=== PATIENT | female | born 1965 | race Caucasian/White ===

== ENCOUNTER 2021-09-27 21:11 | Emergency (ER) | payer OTHER ==
--- OUTSIDE RECORDS SUMMARY | 2021-09-27 21:15 | XMS REPORT | Continuity of Care Document ---
:1965 Author Organization [facility] t Address [address] [place] [address] Care Team Providers Name Role Phone Adair Andersoni Attending Clinician Unavailable Problems This patient has no known problems. Allergies, Adverse Reactions, Alerts This patient has no known allergies or adverse reactions. Medications This patient has no known medications. Procedures This patient has no known procedures. Encounters Start End Encounter Admission Attending Care Care Encounter Source Date/Time Date/Time Type Type Clinicians Facility Department ID 2021-04-21 Outpatient Anderson, STLMLC STLMLC [id number] Common 15:36:02 [facility] 2021-04-20 Outpatient Anderson, STLMLC STLMLC [id number] Common 09:57:04 [facility] 2021-03-31 Outpatient STLMLC STLMLC [id number] Common 14:39:14 [facility] 2021-09-24 2021-09-24 ambulatory STLMLC STLMLC [id number] Common 00:00:00 00:00:00 [facility] 2021-09-23 2021-09-23 ambulatory STLMLC STLMLC [id number] Common 00:00:00 00:00:00 [facility] 2021-07-13 2021-07-13 ambulatory STLMLC STLMLC [id number] Common 00:00:00 00:00:00 [facility] 2021-07-07 2021-07-07 ambulatory STLMLC STLMLC [id number] Common 00:00:00 00:00:00 [facility] 2021-07-06 2021-07-06 ambulatory STLMLC STLMLC [id number] Common 00:00:00 00:00:00 [facility] 2021-07-06 2021-07-06 ambulatory STLMLC STLMLC [id number] Common 00:00:00 00:00:00 [facility] 2021-05-13 2021-05-13 ambulatory STLMLC STLMLC [id number] Common 00:00:00 00:00:00 [facility] 2021-04-30 2021-04-30 ambulatory STLMLC STLMLC [id number] Common 00:00:00 00:00:00 [facility] 2021-04-29 2021-04-29 ambulatory STLMLC STLMLC [id number] Common 00:00:00 00:00:00 [facility] 2021-03-30 2021-03-30 ambulatory STLMLC STLMLC [id number] Common 00:00:00 00:00:00 [facility] 2021-03-29 2021-03-29 ambulatory STLMLC STLMLC [id number] Common 00:00:00 00:00:00 [facility] Results This patient has no known results.
--- NOTE | 2021-09-27 22:57 | ER ---
Nurse's Notes [facility] Name: Linwood Andrews Age: 55 yrs Sex: Female : 1965 Arrival Date: 09/27/2021 Time: 21:15 Bed Waiting Private MD: Diagnosis: SARS-associated coronavirus as the cause of diseases classified elsewhere Presentation: 09/27 21:30 Chief complaint: Patient states: NAUSEA, WEAKNESS, CHILLS SINCE YESTERDAY. Coronavirus [facility] screen: Vaccine status: Patient reports being unvaccinated. chills, congestion, fatigue, nausea. Ebola Screen: Patient negative for fever greater than or equal to 101.5 degrees Fahrenheit, and additional compatible Ebola Virus Disease symptoms. Initial Sepsis Screen: Does the patient meet any 2 criteria? No. Patient's initial sepsis screen is negative. Does the patient have a suspected source of infection? No. Patient's initial sepsis screen is negative. Risk Assessment: Do you want to hurt yourself or someone else? Patient reports no desire to harm self or others. Onset of symptoms was September 27, 2021. 21:30 Method Of Arrival: Ambulatory [facility] 21:30 Acuity: CHRIS 4 [facility] Triage Assessment: 21:32 General: Appears in no apparent distress. ill, Behavior is calm, cooperative, [facility] appropriate for age. Pain: Denies pain. Respiratory: Breath sounds are clear bilaterally. 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 - Social history:: Smoking status: Patient denies any tobacco usage or history of. Screenin:00 Abuse screen: Denies threats or abuse. Nutritional screening: No deficits noted. [facility] Tuberculosis screening: No symptoms or risk factors identified. Fall Risk None identified. Assessment: 23:00 Cardiovascular: Capillary refill < 3 seconds. Respiratory: Airway is patent. [facility] Vital Signs: 21:36 BP 113 / 64; Pulse 113; Resp 18; Temp 98.8(TE); Pulse Ox 99% on R/A; Weight 106.59 kg; [facility] Height 5 ft. 7 in. (170.18 cm); Pain 0/10; 21:36 Body Mass Index 36.81 (106.59 kg, 170.18 cm) [facility] ED Course: 21:15 Patient arrived in ED. [id number] 21:25 Juliette Garnica FNP-C is [facility]. kb 21:25 Jere Peck MD is Attending Physician. kb 21:32 Triage completed. [facility] 21:33 Arm band placed on right wrist. [facility] 21:38 COVID-19 SARS RT PCR (Document "Date of Onset" if Symptomatic) Sent. 1 21:38 Flu Sent. 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 23:00 No apparent distress. [facility] 23:00 Patient has correct armband on for positive identification. [facility] 23:00 No provider procedures requiring assistance completed. Patient did not have IV access [facility] during this emergency room visit. Administered Medications: No medications were administered Medication: 23:00 VIS not applicable for this client. [facility] Outcome: 22:56 Discharge ordered by . 23:00 Discharged to home ambulatory. [facility] 23:00 Condition: good 23:00 Discharge instructions given to patient, Instructed on discharge instructions, follow up and referral plans. medication usage, Demonstrated understanding of instructions, follow-up care, medications. 23:07 Patient left the ED. [facility] Signatures: Juliette Garnica FNP-C FNP-Sosa Rea, RN RN 1 Amira Melo [email or web address] Esther Nguyen RN RN [facility]
--- NOTE | 2021-09-27 22:57 | EDPHYS ---
Physician Documentation [facility] Name: Linwood Andrews Age: 55 yrs Sex: Female : 1965 Arrival Date: 09/27/2021 Time: 21:15 Bed Waiting Private MD: ED Physician Jere Peck HPI: 09/27 22:39 This 55 yrs old Female presents to ER via Ambulatory with complaints of Congestion, kb Headache. 22:39 The patient or guardian reports flu symptoms, low-grade fever, myalgias. Onset: The kb symptoms/episode began/occurred 2 day(s) ago. Severity of symptoms: At their worst the symptoms were mild, moderate, in the emergency department the symptoms are unchanged. Modifying factors: The symptoms are alleviated by nothing, the symptoms are aggravated by nothing. Associated signs and symptoms: The patient has no apparent associated signs or symptoms. The patient has not experienced similar symptoms in the past. The patient has not recently seen a physician. 22:55 Pt reports her has been sick for 4 days, then she developed congestion, kb headache, malaise, bodyaches and headache and is concerned it is covid. 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 - Social history:: Smoking status: Patient denies any tobacco usage or history of. ROS: 22:38 Respiratory: Negative for shortness of breath, cough, wheezing, and pleuritic chest kb pain. 22:38 Constitutional: Positive for body aches, chills, fatigue, malaise. 22:38 ENT: Positive for rhinorrhea, sinus congestion. 22:38 Neuro: Positive for headache. 22:38 All other systems are negative. Exam: 22:38 Constitutional: This is a well developed, well nourished patient who is awake, alert, kb and in no acute distress. Head/Face: Normocephalic, atraumatic. ENT: Moist Mucous membranes Cardiovascular: Regular rate and rhythm with a normal S1 and S2. No gallops, murmurs, or rubs. No pulse deficits. Respiratory: Respirations even and unlabored. No increased work of breathing. Talking in full sentences Abdomen/GI: Soft, non-tender. No distention Skin: Warm, dry with normal turgor. Normal color. MS/ Extremity: Pulses equal, no cyanosis. Neurovascular intact. Full, normal range of motion. Neuro: Awake and alert, GCS 15, oriented to person, place, time, and situation. Moves all extremities. Normal gait. Psych: Awake, alert, with orientation to person, place and time. Behavior, mood, and affect are within normal limits. Vital Signs: 21:36 BP 113 / 64; Pulse 113; Resp 18; Temp 98.8(TE); Pulse Ox 99% on R/A; Weight 106.59 kg; bh1 Height 5 ft. 7 in. (170.18 cm); Pain 0/10; 21:36 Body Mass Index 36.81 (106.59 kg, 170.18 cm) bh1 MDM: 21:33 Patient medically screened. kb 22:39 Data reviewed: vital signs, nurses notes. Data interpreted: Pulse oximetry: on room air kb is 99 %. Interpretation: normal. Counseling: I had a detailed discussion with the patient and/or guardian regarding: the historical points, exam findings, and any diagnostic results supporting the discharge/admit diagnosis, lab results, the need for outpatient follow up, a family practitioner, to return to the emergency department if symptoms worsen or persist or if there are any questions or concerns that arise at home. 09/27 21:33 Order name: Flu; Complete Time: 22:17 kb 09/27 21:33 Order name: COVID-19 SARS RT PCR (Document "Date of Onset" if Symptomatic); Complete kb Time: 22:38 Administered Medications: No medications were administered Disposition: 09/28 02:48 Co-signature as Attending Physician, Jere Peck MD I agree with the assessment and kdr plan of care. Disposition Summary: 09/27/21 22:56 Discharge Ordered Location: Home Condition: Stable kb Diagnosis - SARS-associated coronavirus as the cause of diseases classified elsewhere kb Followup: kb - With: Emergency Department - When: As needed - Reason: Worsening of condition Followup: kb - With: Private Physician - When: 2 - 3 days - Reason: Recheck today's complaints, Continuance of care, Re-evaluation by your physician Discharge Instructions: - Discharge Summary Sheet kb - COVID-19 kb Forms: - Medication Reconciliation Form kb - Thank You Letter kb - Antibiotic Education kb - Prescription Opioid Use kb Prescriptions: - Paxlovid (EUA) 150 mg x 2- 100 mg Oral tablet - take 3 tablet by ORAL route 2 times per day per package directions; 30 tablet; kb Refills: 0, Product Selection Permitted Signatures: Dispatcher [employer] EDMS Juliette Garnica, CEMENT BREAKERDanielC Jere Camp MD MD kdr Hicks, Barbara RN RN [facility]
[2021-09-27 23:30] VITALS: BP 113/64; TEMP 98.8; O2SAT 99
== END 2021-09-27 23:07 | disposition home or self-care (01) ==
LOC: ER 21:11
DX: U07.1 COVID-19 (principal)
CPT/HCPCS: 87804 ×2; 99283; U0003

== ENCOUNTER 2024-06-27 15:16 | Emergency (ER) | payer OTHER ==
--- OUTSIDE RECORDS SUMMARY | 2024-06-27 15:19 | XMS REPORT | Continuity of Care Document ---
Author Name Unknown Address [address] [facility]. [address] [place] [address] [facility] [place] Address [address] [facility] [address] [place] [address] Care Team Providers Care Riding Coach Name Role Phone MARYANN ANDERSON Primary Care Physician UnavailMaryann Peace Attending Clinician Unavailable CHARLES LAST Attending Clinician Unavailable Charles Last MD Attending Clinician [facility] Attending Clinician Tamar Costa MD Attending Clinician TAMAR JOSE Attending Clinician TAMAR Costa Attending Clinician Anderson leon Doctor Unassigned, [place] Attending Clinician U Jag Adams Admitting Clinician Unavailable CHARLES LAST Admitting Clinician Unavailable Payers Payer Name Policy Type Policy Number Effective Date Expirati on Date Source JENNIFER [id number] 2022 00:00:00 Problems Condition Name Condition Details Condition Category Status Onset Date Resolution Date Last Treatment Date Treating Clinician Comments Source [id number] Non-season al allergic rhinitis due to pollen Problem [facility] [id number] Hypothyroi dism (acquired) Problem [facility] Decreased hearing Decreased hearing Problem [facility] [id number] Sleep apnea in adult Problem [facility] [id number] Morbid (severe) obesity due to excess calories Problem [facility] [id number] DARIA (generaliz ed anxiety disorder) Problem [facility] [id number] Body mass index [BMI] 45.0-49.9, adult Problem [facility] [id number] 01 Non-allerg ic rhinitis Problem [facility] [id number] Moderate persistent asthma without complicati on Problem [facility] [id number] Gastroesop hageal reflux disease without esophagiti s Problem [facility] [id number] Pure hyperchole sterolemia Problem [facility] Allergies, Adverse Reactions, Alerts Allergy Name Allergy Type Status Severity Reaction(s) Onset Date Inactive Date Treating Clinician Comments Source GUAIFENE SIN DRUG INGREDI Active N/V 08-10 00:00: 00 [facility] Guaifene sin Propensi ty to adverse reaction s Active Nausea and/or Vomiting 08-10 00:00: 00 [facility] levothyr oxine levothyr oxine Active rash [facility] NO KNOWN ALLERGIE S Drug Class Active [facility] Social History Social Habit Start Date Stop Date Quantity Comments Source History of tobacco use Cigarette Smoker [facility] Tobacco use and exposure 2022-08-10 00:00:00 2022-08-10 00:00:00 Smokeless tobacco non-user [facility] History of Social function 2022-08-10 00:00:00 2022-08-10 00:00:00 [facility] Sex Assigned At 1965 00:00:00 1965 00:00:00 [facility] Smoking Status Start Date Stop Date Source Tobacco smoking consumption unknown [facility] Ex-smoker 2022-08-10 00:00:00 2022-08-10 00:00:00 [facility] Medications Ordered Medication Name Filled Medication Name Start Date Stop Date Current Medication? Ordering Clinician Indication Dosage Frequency Signature (SIG) Comments Components Source Vitamin D3 1.25 MG (39102 UT) Vitamin D3 1.25 MG (76087 UT) 4 00:00: 00 No 1{capsu le} Vitamin D3 1.25 MG (66341 UT) hydrOXYzine HCl 10 MG hydrOXYzine HCl 10 MG 05-22 00:00: 00 No 1{table t} BID hydrOXYzin e HCl 10 MG Cetirizine HCl 10 MG Cetirizine HCl 10 MG 2023-03 00:00: 00 No 1{table t} QD Cetirizine HCl 10 MG esomeprazol e magnesium (NEXIUM ORAL) 08-10 10:37: 11 Yes Take by mouth. [facility] Montelukast Sodium 10 MG Montelukast Sodium 10 MG No 1{table t} QD Montelukas t Sodium 10 MG Fluticasone Propionate 50 MCG/ACT Fluticasone Propionate 50 MCG/ACT No 1{spray _in_eac h_nostr il} QD Fluticason e Propionate 50 MCG/ACT Lansoprazol e 15 MG Lansoprazol e 15 MG No 1{capsu le_befo re_a_me al} BID Lansoprazo le 15 MG Vitamin D3 Gummies 25 MCG (1000 UT) Vitamin D3 Gummies 25 MCG (1000 UT) No 1{table t} QD Vitamin D3 Gummies 25 MCG (1000 UT) Albuterol Sulfate HFA 108 (90 Base) MCG/ACT Albuterol Sulfate HFA 108 (90 Base) MCG/ACT No 1{puff_ as_need ed} 6xD Albuterol Sulfate HFA 108 (90 Base) MCG/ACT Rosuvastati n Calcium 20 MG Rosuvastati n Calcium 20 MG No 1{table t} QD Rosuvastat in Calcium 20 MG Vital Signs Vital Name Observation Time Observation Value Comments S ource height 2024-05-22 11:40:00 64 [in_i] Commo n [facility] weight 2024-05-22 11:40:00 250 [lb_av] Comm on [facility] bmi 2024-05-22 11:40:00 42.91 kg/m2 Comm on [facility] height 2024-02-22 09:00:00 64 [in_i] Commo n [facility] weight 2024-02-22 09:00:00 255 [lb_av] Comm on [facility] bmi 2024-02-22 09:00:00 43.77 kg/m2 Comm on [facility] height 2023-09-14 14:20:00 64 [in_i] Commo n [facility] weight 2023-09-14 14:20:00 261 [lb_av] Comm on [facility] temperature 2023-09-14 14:20:00 97.3 [degF] Com [facility] bmi 2023-09-14 14:20:00 44.8 kg/m2 Commo n [facility] oximetry 2023-09-14 14:20:00 99 % [facility]mo [facility] respiratory rate 2023-09-14 14:20:00 16 /min [facility] blood pressure systolic 2023-09-14 14:20:00 132 mm[Hg] [facility] blood pressure diastolic 2023-09-14 14:20:00 76 mm[Hg] [facility] height 2023-07-24 11:20:00 64 [in_i] Commo n [facility] weight 2023-07-24 11:20:00 250 [lb_av] Comm on [facility] bmi 2023-07-24 11:20:00 42.91 kg/m2 Comm on [facility] height 2023-07-05 11:40:00 64 [in_i] Commo n [facility] weight 2023-07-05 11:40:00 250 [lb_av] Comm on [facility] bmi 2023-07-05 11:40:00 42.91 kg/m2 Comm on [facility] height 2023-07-05 11:40:00 64 [in_i] Commo n [facility] weight 2023-07-05 11:40:00 250 [lb_av] Comm on [facility] bmi 2023-07-05 11:40:00 42.91 kg/m2 Comm on [facility] height 2023-06-21 13:00:00 64 [in_i] Commo n [facility] weight 2023-06-21 13:00:00 257 [lb_av] Comm on [facility] temperature 2023-06-21 13:00:00 97.1 [degF] Com mon [facility] bmi 2023-06-21 13:00:00 44.11 kg/m2 Comm on [facility] oximetry 2023-06-21 13:00:00 98 % Commo [facility] respiratory rate 2023-06-21 13:00:00 16 /min [facility] blood pressure systolic 2023-06-21 13:00:00 134 mm[Hg] [facility] blood pressure diastolic 2023-06-21 13:00:00 76 mm[Hg] [facility] height 2023-01-04 11:40:00 64 [in_i] Commo n [facility] weight 2023-01-04 11:40:00 250 [lb_av] Comm on [facility] bmi 2023-01-04 11:40:00 42.91 kg/m2 Comm on [facility] height 2022-10-18 10:40:00 64 [in_i] Commo n [facility] weight 2022-10-18 10:40:00 253 [lb_av] Comm on [facility] temperature 2022-10-18 10:40:00 97.2 [degF] Com mon [facility] bmi 2022-10-18 10:40:00 43.42 kg/m2 Comm on [facility] oximetry 2022-10-18 10:40:00 98 % Commo [facility] respiratory rate 2022-10-18 10:40:00 17 /min [facility] blood pressure systolic 2022-10-18 10:40:00 130 mm[Hg] [facility] blood pressure diastolic 2022-10-18 10:40:00 74 mm[Hg] [facility] height 2022-09-22 11:00:00 64 [in_i] Commo n [facility] weight 2022-09-22 11:00:00 250 [lb_av] Comm on [facility] bmi 2022-09-22 11:00:00 42.91 kg/m2 Comm on [facility] Systolic blood pressure 2022-08-10 15:39:00 131 mm[Hg] [facility] Diastolic blood pressure 2022-08-10 15:39:00 77 mm[Hg] [facility] Heart rate 2022-08-10 15:39:00 63 /min [facility] Body temperature 2022-08-10 15:39:00 36.39 Keyla [facility] Respiratory rate 2022-08-10 15:39:00 18 /min [facility] Body height 2022-08-10 15:39:00 165.1 cm [facility] Body weight 2022-08-10 15:39:00 114.715 kg [facility] BMI 2022-08-10 15:39:00 42.08 kg/m2 [facility] Oxygen saturation in Arterial blood by Pulse oximetry 2022-08-10 15:39:00 98 /min [facility] height 2022-04-20 11:00:00 64 [in_i] Commo n [facility] weight 2022-04-20 11:00:00 249 [lb_av] Comm on [facility] temperature 2022-04-20 11:00:00 97.8 [degF] Com mon [facility] bmi 2022-04-20 11:00:00 42.74 kg/m2 Comm on [facility] oximetry 2022-04-20 11:00:00 98 % Commo [facility] respiratory rate 2022-04-20 11:00:00 17 /min [facility] blood pressure systolic 2022-04-20 11:00:00 134 mm[Hg] [facility] blood pressure diastolic 2022-04-20 11:00:00 82 mm[Hg] [facility] height 2021-09-24 13:00:00 64 [in_i] Commo n [facility] weight 2021-09-24 13:00:00 252 [lb_av] Comm on [facility] temperature 2021-09-24 13:00:00 98.2 [degF] Com mon [facility] bmi 2021-09-24 13:00:00 43.25 kg/m2 Comm on [facility] oximetry 2021-09-24 13:00:00 98 % Commo [facility] respiratory rate 2021-09-24 13:00:00 17 /min [facility] blood pressure systolic 2021-09-24 13:00:00 136 mm[Hg] [facility] blood pressure diastolic 2021-09-24 13:00:00 84 mm[Hg] [facility] height 2021-07-06 14:40:00 64 [in_i] Commo n [facility] weight 2021-07-06 14:40:00 255 [lb_av] Comm on [facility] bmi 2021-07-06 14:40:00 43.77 kg/m2 Comm on [facility] height 2021-05-13 10:00:00 64 [in_i] Commo n [facility] weight 2021-05-13 10:00:00 265.8 [lb_av] Co mmon [facility] temperature 2021-05-13 10:00:00 98.1 [degF] Com [facility] bmi 2021-05-13 10:00:00 45.62 kg/m2 Comm on [facility] oximetry 2021-05-13 10:00:00 99 % Commo [facility] respiratory rate 2021-05-13 10:00:00 18 /min [facility] blood pressure systolic 2021-05-13 10:00:00 136 mm[Hg] [facility] blood pressure diastolic 2021-05-13 10:00:00 78 mm[Hg] [facility] height 2021-04-29 11:20:00 64 [in_i] Commo n [facility] weight 2021-04-29 11:20:00 265 [lb_av] Comm on [facility] temperature 2021-04-29 11:20:00 98.7 [degF] Com [facility] bmi 2021-04-29 11:20:00 45.48 kg/m2 Comm on [facility] height 2021-03-29 10:40:00 64 [in_i] Commo n [facility] weight 2021-03-29 10:40:00 263.8 [lb_av] Co mmon [facility] temperature 2021-03-29 10:40:00 97.1 [degF] Com [facility] bmi 2021-03-29 10:40:00 45.28 kg/m2 Comm on [facility] oximetry 2021-03-29 10:40:00 99 % Commo [facility] respiratory rate 2021-03-29 10:40:00 16 /min [facility] blood pressure systolic 2021-03-29 10:40:00 124 mm[Hg] [facility] blood pressure diastolic 2021-03-29 10:40:00 67 mm[Hg] [facility] Procedures Procedure Date / Time Performed Performing Clinicia n Source SLEEP STUDY DATA REPORT 2022-08-18 05:01:00 Doctor Unassigned, [place] [facility] HB ECG ROUTINE & RHYTHM STRIP 2022-08-10 15:42:35 Charles Last [facility] ASSIGNMENT OF BENEFITS 2022-08-10 15:27:43 Docto r Unassigned, [place] [facility] EXTERNAL PROVIDER - ADC REFERRAL 2022-07-25 05:01:00 Doctor Unassigned, [place] [facility] Encounters Start Date/Time End Date/Time Encounter Type Admission Type Attending [facility] Facility Care Department Encounter ID Source 2024-06-04 08:28:00 Outpatient AndersonMaryann de la cruz STLMLC STLMLC [id number] [facility] 2024-05-21 11:43:00 Outpatient Maryann Anderson STLMLC STLMLC [id number] [facility] 2024-03-11 11:10:01 Outpatient Maryann Anderson STLMLC STLMLC [id number] [facility] 2024-02-21 13:29:00 Outpatient Maryann Anderson STLMLC STLMLC [id number] [facility] 2023-09-18 17:33:00 Outpatient Maryann Anderson STLMLC STLMLC [id number] [facility] 2023-09-14 08:13:00 Outpatient Maryann Anderson STLMLC STLMLC [id number] [facility] 2023-07-04 10:38:01 Outpatient AndersonAdair hahni STLMLC STLMLC [id number] [facility] 2023-01-02 08:26:01 Outpatient Maryann Anderson STLMLC STLMLC [id number] [facility] 2022-09-19 09:05:01 Outpatient Maryann Anderson STLMLC STLMLC [id number] [facility] 2022-08-18 10:08:02 Outpatient Maryann Anderson STLMLC STLMLC [id number] [facility] 2021-04-21 15:36:02 Outpatient Maryann Anderson STLMLC STLMLC [id number] [facility] 2021-04-20 09:57:04 Outpatient Maryann Anderson STLC STLMLC [id number] [facility] 2021-03-31 14:39:14 Outpatient STLMLC STLMLC [id number] [facility] 2024-06-05 00:00:00 2024-06-05 00:00:00 OFFICE VISIT ESTAB PT LEVEL 4 STLMLC STLMLC [id number] [facility] 2024-05-22 00:00:00 2024-05-22 00:00:00 OFFICE VISIT ESTAB PT LEVEL 4 STLMLC STLMLC [id number] [facility] 2024-03-11 00:00:00 2024-03-11 00:00:00 (TEL) STLMLC STLMLC [id number] [facility] 2024-02-22 00:00:00 2024-02-22 00:00:00 OFFICE VISIT ESTAB PT LEVEL 4 STLMLC STLMLC [id number] [facility] 2023-09-19 00:00:00 2023-09-19 00:00:00 (TEL) STLMLC STLMLC [id number] [facility] 2023-09-15 00:00:00 2023-09-15 00:00:00 (TEL) STLMLC STLMLC [id number] [facility] 2023-09-14 00:00:2023-09-14 00:00:00 (WELLNESS) Wellness Visit STLMLC STLMLC [id number] [facility] 2023-08-10 00:00:00 2023-08-10 00:00:00 (TEL) STLMLC STLMLC [id number] [facility] 2023-07-24 00:00:00 2023-07-24 00:00:00 OFFICE VISIT ESTAB PT LEVEL 3 STLMLC STLMLC [id number] [facility] 2023-07-05 00:00:00 2023-07-05 00:00:00 OFFICE VISIT ESTAB PT LEVEL 4 STLMLC STLMLC [id number] [facility] 2023-06-26 00:00:00 2023-06-26 00:00:00 (TEL) STLMLC STLMLC [id number] [facility] 2023-06-21 00:00:00 2023-06-21 00:00:00 (TEL) STLMLC STLMLC [id number] [facility] 2023-06-21 00:00:00 2023-06-21 00:00:00 OFFICE VISIT ESTAB PT LEVEL 3 STLMLC STLMLC [id number] [facility] 2023-04-21 00:00:00 2023-04-21 00:00:00 (TEL) STLMLC STLMLC [id number] [facility] 2023-03-01 00:00:00 2023-03-01 00:00:00 OFFICE VISIT ESTAB PT LEVEL 3 STLMLC STLMLC [id number] [facility] 2023-01-16 00:00:00 2023-01-16 00:00:00 (TEL) STLMLC STLMLC [id number] [facility] 2023-01-04 00:00:00 2023-01-04 00:00:00 OFFICE VISIT ESTAB PT LEVEL 4 STLMLC STLMLC [id number] [facility] 2022-11-28 15:44:07 2022-11-28 23:59:00 [facility] [id number] 2022-11-28 15:44:07 2022-11-28 23:59:00 Hospital Encounter Acosta Lastrebekah [facility] PROFESSIO [facility] [id number] [facility] 2022-10-18 00:00:00 2022-10-18 00:00:00 (TEL) STLMLC STLMLC [id number] [facility] 2022-10-18 00:00:00 2022-10-18 00:00:00 OFFICE VISIT ESTAB PT LEVEL 3 STLMLC STLMLC [id number] [facility] 2022-09-22 00:00:00 2022-09-22 00:00:00 OFFICE VISIT ESTAB PT LEVEL 4 STLMLC STLMLC [id number] [facility] 2022-09-13 00:00:00 2022-09-13 00:00:00 (TEL) STLMLC STLMLC [id number] [facility] 2022-08-31 10:00:00 2022-08-31 10:00:00 [facility] [id number] [facility] 2022-08-24 15:30:00 2022-08-24 15:30:00 [facility] [id number] [facility] 2022-08-18 12:00:00 2022-08-18 12:15:00 Outdoor Guide Visit [facility] Tamar Jose [place] [id number] [facility] 2022-08-18 12:00:00 2022-08-18 12:00:00 Outpatient TAMAR HUNG [facility] [id number] [facility] 2022-08-18 00:00:00 2022-08-18 00:00:00 Orders Only Doctor Unassigned, [place] [facility] [id number] [id number] [id number] [facility] 2022-08-10 10:40:00 2022-08-10 11:19:07 [facility] [id number] [facility] 2022-08-10 10:40:00 2022-08-10 11:19:07 [facility] [id number] [id number] [facility] 2022-08-10 00:00:00 2022-08-10 00:00:00 Orders Only Doctor Unassigned, [place] [facility] [id number] [id number] [facility] 2022-07-25 00:00:00 2022-07-25 00:00:00 Orders Only Doctor Unassigned, [place] [facility] [id number] [id number] [id number] [facility] 2022-06-23 00:00:00 2022-06-23 00:00:00 OFFICE VISIT ESTAB PT LEVEL 4 STLMLC STLMLC [id number] [facility] 2022-06-03 00:00:00 2022-06-03 00:00:00 (TEL) STLMLC STLMLC [id number] [facility] 2022-04-20 00:00:00 2022-04-20 00:00:00 OFFICE VISIT ESTAB PT LEVEL 4 STLMLC STLMLC [id number] [facility] 2022-03-21 00:00:00 2022-03-21 00:00:00 (TEL) STLMLC STLMLC [id number] [facility] 2022-03-04 00:00:00 2022-03-04 00:00:00 (TEL) STLMLC STLMLC [id number] [facility] 2022-01-14 00:00:00 2022-01-14 00:00:00 (TEL) STLMLC STLMLC [id number] [facility] 2021-10-28 00:00:00 2021-10-28 00:00:00 (TEL) STLMLC STLMLC [id number] [facility] 2021-10-28 00:00:00 2021-10-28 00:00:00 OFFICE VISIT EST PT LEVEL 3 STLMLC STLMLC [id number] [facility] 2021-10-11 00:00:00 2021-10-11 00:00:00 (TEL) STLMLC STLMLC [id number] [facility] 2021-09-28 00:00:00 2021-09-28 00:00:00 (TEL) STLMLC STLMLC [id number] [facility] 2021-09-24 00:00:00 2021-09-24 00:00:00 OFFICE VISIT ESTAB PT LEVEL 4 STLMLC STLMLC [id number] [facility] 2021-09-23 00:00:00 2021-09-23 00:00:00 (TEL) STLMLC STLMLC [id number] [facility] 2021-07-13 00:00:00 2021-07-13 00:00:00 (TEL) STLMLC STLMLC [id number] [facility] 2021-07-07 00:00:00 2021-07-07 00:00:00 (TEL) STLMLC STLMLC [id number] [facility] 2021-07-06 00:00:00 2021-07-06 00:00:00 OFFICE VISIT EST PT LEVEL 3 STLMLC STLMLC [id number] [facility] 2021-07-06 00:00:00 2021-07-06 00:00:00 (TEL) STLMLC STLMLC [id number] [facility] 2021-05-13 00:00:00 2021-05-13 00:00:00 OFFICE VISIT EST PT LEVEL 3 STLMLC STLMLC [id number] [facility] 2021-04-30 00:00:00 2021-04-30 00:00:00 (TEL) STLMLC STLMLC [id number] [facility] 2021-04-29 00:00:00 2021-04-29 00:00:00 OFFICE VISIT ESTAB PT LEVEL 4 STLMLC STLMLC [id number] [facility] 2021-03-30 00:00:00 2021-03-30 00:00:00 (TEL) STLMLC STLMLC [id number] [facility] 2021-03-29 00:00:00 2021-03-29 00:00:00 OFFICE VISIT NEW PT LEVEL 4 STLMLC STLMLC [id number] [facility] Results Test Description Test Time Test Comments Results Result Co mments Source CULTURE, [id number] 00:00:00* Test Item Value Reference Range Interpretation Comme nts CULTURE, URINE (test code = 630-4) SPECIMEN NUMBER: [id number] CBC W/AUTO [id number] 00:00:00* Test Item Value Reference Range Interpretation Comme nts NUCLEATED RBCS (test code = 15306-1) 0.0 /100 WBC'S See_Comment [Automated messa ge] The system which generated this result transmitted reference range: 0.0 /100 WBC'S. The reference range was not used to interpret this result as normal/abnormal. ABSOLUTE EOSINOPHILS (test code = 25659-8) 0.07 K/UL See_Comment [Automated messa ge] The system which generated this result transmitted reference range: 0.00-0.50 K/UL. The reference range was not used to interpret this result as normal/abnormal. ABSOLUTE LYMPHOCYTES (test code = 48912-4) 2.00 K/UL See_Comment [Automated messa ge] The system which generated this result transmitted reference range: 1.00-4.00 K/UL. The reference range was not used to interpret this result as normal/abnormal. ABSOLUTE MONOCYTES (test code = 72701-4) 0.34 K/UL See_Comment [Automated messa ge] The system which generated this result transmitted reference range: 0.20-1.00 K/UL. The reference range was not used to interpret this result as normal/abnormal. ABSOLUTE NEUTROPHILS (test code = 33683-8) 4.06 K/UL See_Comment [Automated messa ge] The system which generated this result transmitted reference range: 1.50-7.50 K/UL. The reference range was not used to interpret this result as normal/abnormal. BASOPHILS (test code = 13962-9) 0.5 % EOSINOPHILS (test code = 99487-9) 1.1 % HEMATOCRIT (test code = 19219-6) 36.0 % See_Comment [Automated messa ge] The system which generated this result transmitted reference range: 34.0-45.0 %. The reference range was not used to interpret this result as normal/abnormal. HEMOGLOBIN (test code = 718-7) 12.1 G/DL See_Comment [Automated messa ge] The system which generated this result transmitted reference range: 11.5-15.5 G/DL. The reference range was not used to interpret this result as normal/abnormal. LYMPHOCYTES (test code = 83320-2) 30.7 % MCH (test code = 80274-5) 30.9 PG See_Comment [Automated messa ge] The system which generated this result transmitted reference range: 25.0-33.0 PG. The reference range was not used to interpret this result as normal/abnormal. MCHC (test code = 91645-8) 33.6 G/DL See_Comment [Automated messa ge] The system which generated this result transmitted reference range: 31.0-36.0 G/DL. The reference range was not used to interpret this result as normal/abnormal. MCV (test code = 32982-4) 91.8 fL See_Comment [Automated messa ge] The system which generated this result transmitted reference range: 80.0-99.0 fL. The reference range was not used to interpret this result as normal/abnormal. MONOCYTES (test code = 79511-3) 5.2 % NEUTROPHILS (test code = 97655-9) 62.2 % PLATELET COUNT (test code = 43079-6) 211 K/UL See_Comment [Automated messa ge] The system which generated this result transmitted reference range: 130-400 K/UL. The reference range was not used to interpret this result as normal/abnormal. RBC (test code = 32683-1) 3.92 M/UL See_Comment [Automated messa ge] The system which generated this result transmitted reference range: 3.80-5.40 M/UL. The reference range was not used to interpret this result as normal/abnormal. RDW (test code = 71480-9) 13.9 % See_Comment [Automated messa ge] The system which generated this result transmitted reference range: 11.5-15.0 %. The reference range was not used to interpret this result as normal/abnormal. WBC (test code = 33761-5) 6.5 K/UL See_Comment [Automated messa ge] The system which generated this result transmitted reference range: 3.5-11.0 K/UL. The reference range was not used to interpret this result as normal/abnormal. CBC W/AUTO [id number] 00:00:00* Test Item Value Reference Range Interpretation Comme nts NUCLEATED RBCS (test code = 86586-6) 0.0 /100 WBC'S See_Comment [Automated messa ge] The system which generated this result transmitted reference range: 0.0 /100 WBC'S. The reference range was not used to interpret this result as normal/abnormal. ABSOLUTE EOSINOPHILS (test code = 21278-7) 0.07 K/UL See_Comment [Automated messa ge] The system which generated this result transmitted reference range: 0.00-0.50 K/UL. The reference range was not used to interpret this result as normal/abnormal. ABSOLUTE LYMPHOCYTES (test code = 37860-5) 2.02 K/UL See_Comment [Automated messa ge] The system which generated this result transmitted reference range: 1.00-4.00 K/UL. The reference range was not used to interpret this result as normal/abnormal. ABSOLUTE MONOCYTES (test code = 13454-3) 0.31 K/UL See_Comment [Automated messa ge] The system which generated this result transmitted reference range: 0.20-1.00 K/UL. The reference range was not used to interpret this result as normal/abnormal. ABSOLUTE NEUTROPHILS (test code = 56245-6) 4.07 K/UL See_Comment [Automated messa ge] The system which generated this result transmitted reference range: 1.50-7.50 K/UL. The reference range was not used to interpret this result as normal/abnormal. BASOPHILS (test code = 97872-8) 0.5 % EOSINOPHILS (test code = 70140-8) 1.1 % HEMATOCRIT (test code = 76206-7) 37.8 % See_Comment [Automated messa ge] The system which generated this result transmitted reference range: 34.0-45.0 %. The reference range was not used to interpret this result as normal/abnormal. HEMOGLOBIN (test code = 718-7) 12.9 G/DL See_Comment [Automated messa ge] The system which generated this result transmitted reference range: 11.5-15.5 G/DL. The reference range was not used to interpret this result as normal/abnormal. LYMPHOCYTES (test code = 62969-4) 31.0 % MCH (test code = 25514-1) 30.6 PG See_Comment [Automated messa ge] The system which generated this result transmitted reference range: 25.0-33.0 PG. The reference range was not used to interpret this result as normal/abnormal. MCHC (test code = 81419-4) 34.1 G/DL See_Comment [Automated messa ge] The system which generated this result transmitted reference range: 31.0-36.0 G/DL. The reference range was not used to interpret this result as normal/abnormal. MCV (test code = 57087-1) 89.8 fL See_Comment [Automated messa ge] The system which generated this result transmitted reference range: 80.0-99.0 fL. The reference range was not used to interpret this result as normal/abnormal. MONOCYTES (test code = 51638-9) 4.8 % NEUTROPHILS (test code = 98659-9) 62.3 % PLATELET COUNT (test code = 57192-2) 234 K/UL See_Comment [Automated messa ge] The system which generated this result transmitted reference range: 130-400 K/UL. The reference range was not used to interpret this result as normal/abnormal. RBC (test code = 65425-3) 4.21 M/UL See_Comment [Automated messa ge] The system which generated this result transmitted reference range: 3.80-5.40 M/UL. The reference range was not used to interpret this result as normal/abnormal. RDW (test code = 53733-5) 14.0 % See_Comment [Automated messa ge] The system which generated this result transmitted reference range: 11.5-15.0 %. The reference range was not used to interpret this result as normal/abnormal. WBC (test code = 63036-5) 6.5 K/UL See_Comment [Automated messa ge] The system which generated this result transmitted reference range: 3.5-11.0 K/UL. The reference range was not used to interpret this result as normal/abnormal. Shoulder Right 2 ViewShoulder Right 2 View
--- NOTE | 2024-06-27 15:44 | RAD REPORT ---
EXAM: Chest Single View HISTORY: 58 years Female PAIN COMPARISON: None. FINDINGS: LUNGS/PLEURA: The lungs are clear. No pleural effusions or pneumothorax. No pulmonary edema. CARDIAC/MEDIASTINUM: The cardiac silhouette is within normal limits. UPPER ABDOMEN: No significant abnormality. BONES: No acute abnormality. LINES/TUBES/OTHER: N/A IMPRESSION: No evidence of acute cardiopulmonary disease.
[2024-06-27] MEDS ORDERED: NA CHLORIDE 0.9% 1,000 ML ONE (16:47)
[2024-06-27] MEDS ORDERED: MECLIZINE HCL 12.5 MG TAB ONE (16:47)
--- NOTE | 2024-06-27 16:53 | RAD REPORT ---
EXAMINATION: US CAROTID DUPLEX CLINICAL INDICATION: , 58 years old. DIZZINESS. TECHNIQUE: Real-time grayscale, color flow and spectral Doppler sonographic images were obtained of t extracranial carotid system using a linear transducer. [id number]. COMPARISON: No prior exam. FINDINGS: RIGHT: Common carotid artery: 72 cm/s Internal carotid artery: 92 cm/s External carotid artery: 81 cm/s Right ICA/CCA ratio: 1.3 Plaque None Vertebral artery Antegrade LEFT: Common carotid artery: 83 cm/s Internal carotid artery: 98 cm/s External carotid artery: 84 cm/s lEFT ICA/CCA ratio: 1.2 Plaque None Vertebral artery Antegrade IMPRESSION: No hemodynamically significant stenosis (greater than 50%) within the extracranial internal carotid a [facility].
[2024-06-27] MEDS ORDERED: FOLIC ACID 5 MG/ML VIAL ONE (17:10)
[2024-06-27 17:46] LABS: Absolute Eosinophils 0.1 K/uL (0-0.5); Absolute Lymphocytes (CBC) 1.9 K/uL (0.7-4.9); Absolute Monocytes 0.4 K/uL (0.1-1.3); Absolute Neutrophil 5.5 K/uL (1.8-8.0); Basophils % 0.4 % (0-1.3); Eosinophils % 0.9 % (0-4.4); Lymphocytes % 24.4 % (15.3-44.8); MCH 30.2 pg (27.0-35.0); MCHC 34.2 g/dL (32.0-36.0); MCV 88.1 fL (80-100); MPV 7.4 fL (7.6-11.3); Monocytes % 4.8 % (3.3-12.3); Neutrophils % 69.5 % (41.7-73.7); Platelets 206 thou/uL (152-406); RBC Red Blood Cell Count 3.98 M/uL (3.86-4.86); Red Cell Distribution Width 15.2 % (12.1-15.2)
--- NOTE | 2024-06-27 17:47 | RAD REPORT ---
EXAMINATION: Head Brain Wo Cont CLINICAL INDICATION: Female, 58 years old.DIZZINESS TECHNIQUE: Axial CT images from the skull base to the vertex without intravenous contrast. Coronal an d sagittal reformatted images were created from the data set. One or more of the following dose reduction techniques were used: Automated exposure control, adjustment of the mA and/or kV according to patient size, and/or iterative reconstruction. Unless otherwise specified, incidental findings do not require dedicated imaging follow-up. [id number]. COMPARISON: No prior exam. FINDINGS: INTRACRANIAL: No acute intracranial hemorrhage. No hydrocephalus. No mass effect or midline shift. No significant white matter disease. VASCULATURE: No visualized abnormalities in the arteries or dural venous sinuses. SCALP/SKULL: No calvarial fracture identified. No acute soft tissue abnormality. SINUSES: The visualized paranasal sinuses are mostly clear. No significant mastoid fluid. IMPRESSION: No acute intracranial abnormality.
[2024-06-27 17:55] LABS: PT Prothrombin Time 12.3 SECONDS (10-13.0); Protime INR 1.08
[2024-06-27 18:08] LABS: ALT/SGPT 18 U/L (13-56); AST/SGOT 14 U/L (15-37); Albumin 3.7 g/dL (3.4-5.0); Albumin/Globulin Ratio 0.9 (1.1-1.8); Alkaline Phosphatase 100 U/L (45-117); Anion Gap 6.7 mEq/L (5.0-15.0); BUN Blood Urea Nitrogen 14 mg/dL (7-18); Bicarbonate 30 mEq/L (21-32); Bilirubin Direct < 0.2 mg/dL (0-0.2); Bilirubin Indirect, Calculated 0.4 mg/dL (0.2-0.8); Bilirubin Total 0.6 mg/dL (0.2-1.0); Glomerular Filtration Rate 63 ml/min (=/>90); Glucose Level 95 mg/dL (74-106); NT PRO-BNP 251 pg/mL (<125); Potassium 3.7 mEq/L (3.5-5.1); Protein, Total 7.7 g/dL (6.4-8.2); Sodium Level 138 mEq/L (136-145); Troponin High Sensitivity 4.7 pg/mL (<58.9)
--- NOTE | 2024-06-27 18:13 | ER ---
Nurse's Notes [facility] Name: Linwood Andrews Age: 58 yrs Sex: Female : 1965 Arrival Date: 06/27/2024 Time: 15:16 Bed 19 Private MD: Diagnosis: Dizziness and giddiness;Benign paroxysmal vertigo, bilateral Presentation: 06/27 15:56 Chief complaint: Patient states: Dizziness for 3-4 days. Coronavirus screen: Client ll1 denies travel out of the [place] in the last 14 days. At this time, the client does not indicate any symptoms associated with coronavirus-19. Ebola Screen: Patient denies travel to an Ebola-affected area in the 21 days before illness onset. Initial Sepsis Screen: Does the patient meet any 2 criteria? No. Patient's initial sepsis screen is negative. Does the patient have a suspected source of infection? No. Patient's initial sepsis screen is negative. Risk Assessment: Do you want to hurt yourself or someone else? Patient reports no desire to harm self or others. Onset of symptoms was June 23, 2024. 15:56 Method Of Arrival: Ambulatory ll1 15:56 Acuity: CHRIS 3 ll1 Triage Assessment: 15:59 General: Appears in no apparent distress. Behavior is calm, cooperative, appropriate ll1 for age. Pain: Denies pain. Neuro: Reports dizziness. Historical: - Allergies: 15:58 ROBITUSSIN; ll1 - PMHx: 15:58 GERD; ll1 - PSHx: 15:58 section; hysterectomy; ll1 - Immunization history:: Adult Immunizations up to date. - Infectious Disease History:: Denies. - Social history:: Smoking status: Patient denies any tobacco usage or history of. Screenin:06 [facility] ED Fall Risk Assessment (Adult) History of falling in the last 3 months, al5 including since admission No falls in past 3 months (0 pts) Confusion or Disorientation No (0 pts) Intoxicated or Sedated No (0 pts) Impaired Gait No (0 pts) Mobility Assist Device Used No (0 pt) Altered Elimination No (0 pt) Score/Fall Risk Level 0 - 2 = Low Risk Oriented to surroundings, Maintained a safe environment, Hourly rounding (assess needs \T\ fall precautionary measures) done. Abuse screen: Denies threats or abuse. Denies injuries from another. Nutritional screening: No deficits noted. Tuberculosis screening: No symptoms or risk factors identified. Assessment: 17:07 Reassessment: No changes from previously documented assessment. Patient and/or family ss updated on plan of care and expected duration. Pain level reassessed. Patient is alert, oriented x 3, equal unlabored respirations, skin warm/dry/pink. 18:20 Reassessment: No changes from previously documented assessment. Patient and/or family ll1 updated on plan of care and expected duration. Pain level reassessed. Patient is alert, oriented x 3, equal unlabored respirations, skin warm/dry/pink. 19:05 General: Appears in no apparent distress. comfortable, Behavior is calm, cooperative. al5 Pain: Denies pain. Neuro: Level of Consciousness is awake, alert, obeys commands, Oriented to person, place, time, situation. Cardiovascular: Reports slight dizziness that has improved. Respiratory: Airway is patent Respiratory effort is even, unlabored, Respiratory pattern is regular, symmetrical. GI: No signs and/or symptoms were reported involving the gastrointestinal system. : No signs and/or symptoms were reported regarding the genitourinary system. EENT: No signs and/or symptoms were reported regarding the EENT system. Derm: Skin is intact, is healthy with good turgor, Skin is pink, warm \T\ dry. normal. Musculoskeletal: No signs and/or symptoms reported regarding the musculoskeletal system. 19:05 Reassessment: discharge pending fluids. al5 Vital Signs: 15:56 BP 157 / 94; Pulse 71; Resp 17; Temp 98.5; Pulse Ox 100% ; Weight 113.4 kg; Height 5 ll1 ft. 4 in. ; Pain 0/10; 18:19 BP 122 / 61 Supine; Pulse 71; ll1 19:00 BP 135 / 67; Pulse 69; Resp 16; Pulse Ox 96% ; al5 19:30 BP 138 / 63; Pulse 69; Resp 17; Pulse Ox 95% on R/A; al5 15:56 Body Mass Index 42.91 (113.40 kg, 162.56 cm) ll1 15:56 Pain Scale: Adult ll1 ED Course: 15:19 Patient arrived in ED. im 15:23 Glynn Mccray MD is Attending Physician. royce 15:42 XRAY Chest (1 view) In Process Unspecified. EDMS 15:58 Triage completed. ll1 15:59 Arm band placed on. ll1 16:46 US Carotid Artery Bilateral In Process Unspecified. EDMS 17:00 Albert Obregon, RN is Primary Nurse. ll1 17:30 Missed attempt(s): 22 gauge in right upper arm. Bleeding controlled, band aid applied, ll1 catheter tip intact. 17:34 Initial lab(s) drawn, by me, sent to lab. Inserted saline lock: 22 gauge in right ll1 antecubital area, using aseptic technique. Blood collected. Flushed with 10 mL NS. 17:39 CT Head Brain wo Cont In Process Unspecified. EDMS 18:13 Mike Díaz MD is Referral Physician. [facility] 18:19 Urinalysis w/ reflexes Sent. ll1 19:08 Patient has correct armband on for positive identification. Bed in low position. Call al5 light in reach. Side rails up X 1. 19:30 Provided Education on: discharge follow up. al5 19:30 No provider procedures requiring assistance completed. IV discontinued, intact, al5 bleeding controlled, No redness/swelling at site. Pressure dressing applied. Administered Medications: 17:01 Not Given (Patient Refused): euoijntin35 mg PO once ll1 18:16 Drug: NS 0.9% IV 1000 ml IV at 1000 ml once; to be given as a bolus over 60 minutes ll1 Route: IV; Rate: 1000 ml; Site: right antecubital; 19:26 Follow up: Response: No adverse reaction; IV Status: Completed infusion; IV Intake: al5 1000ml 18:16 Drug: foLIC Acid IVPB 1 mg IVPB once Route: IVPB; Site: right antecubital; ll1 19:05 Follow up: Response: No adverse reaction; IV Status: Completed infusion; IV Intake: ll1 1000ml 18:26 Drug: Aspirin PO Chewable Tablet 81 mg PO once Route: PO; ll1 19:05 Follow up: Response: No adverse reaction ll1 18:26 Drug: Meclizine PO 50 mg PO once Route: PO; ll1 19:05 Follow up: Response: No adverse reaction ll1 Medication: 19:06 VIS not applicable for this client. al5 Intake: 19:05 IV: 1000ml; Total: 1000ml. ll1 19:26 IV: 1000ml; Total: 2000ml. al5 Outcome: 18:13 Discharge ordered by MD. crane 19:30 Discharged to home ambulatory, with significant other, al5 19:30 Condition: good 19:30 Discharge instructions given to patient, Instructed on discharge instructions, follow up and referral plans. medication usage, Demonstrated understanding of instructions, follow-up care, Prescriptions given X 3, 21:03 Patient left the ED. al5 Signatures: Dispatcher [employer] EDNJ Glynn Mccray MD MD cha Blanchard, Shelby, RN RN ss Albert Obregon RN RN ll1 Roshni Peters Amanda, RN RN al5
--- NOTE | 2024-06-27 18:13 | EDPHYS ---
Physician Documentation [facility] Name: Linwood Andrews Age: 58 yrs Sex: Female : 1965 Arrival Date: 06/27/2024 Time: 15:16 Bed 19 Private MD: ED Physician Glynn Mccray HPI: 06/27 16:48 This 58 yrs old Female presents to ER via Ambulatory with complaints of royce Dizziness. 16:48 The patient presents with dizziness, generalized weakness. Onset: The symptoms/episode royce began/occurred 21 day(s) ago. Context: occurred. Modifying factors: The symptoms are alleviated by nothing. Associated signs and symptoms: The patient has no apparent associated signs or symptoms. Severity of symptoms: At their worst the symptoms were mild moderate in the emergency department the symptoms are unchanged. Patient's baseline: Neuro: alert and fully oriented. The patient has experienced similar episodes in the past, several times. Historical: - Allergies: 15:58 ROBITUSSIN; ll1 - PMHx: 15:58 GERD; ll1 - PSHx: 15:58 section; hysterectomy; ll1 - Immunization history:: Adult Immunizations up to date. - Infectious Disease History:: Denies. - Social history:: Smoking status: Patient denies any tobacco usage or history of. ROS: 16:50 Constitutional: Negative for fever, chills, and weight loss, Eyes: Negative for injury, royce pain, redness, and discharge, ENT: Negative for injury, pain, and discharge, Neck: Negative for injury, pain, and swelling, Cardiovascular: Negative for chest pain, palpitations, and edema, Respiratory: Negative for shortness of breath, cough, wheezing, and pleuritic chest pain, Abdomen/GI: Negative for abdominal pain, nausea, vomiting, diarrhea, and constipation, Back: Negative for injury and pain, : Negative for injury, bleeding, discharge, and swelling, MS/Extremity: Negative for injury and deformity, Skin: Negative for injury, rash, and discoloration, Psych: Negative for depression, anxiety, suicide ideation, homicidal ideation, and hallucinations, Allergy/Immunology: Negative for hives, rash, and allergies, Endocrine: Negative for neck swelling, polydipsia, polyuria, polyphagia, and marked weight changes, Hematologic/Lymphatic: Negative for swollen nodes, abnormal bleeding, and unusual bruising, 16:50 Neuro: Positive for dizziness, Exam: 16:50 Constitutional: This is a well developed, well nourished patient who is awake, alert, royce and in no acute distress. Head/Face: Normocephalic, atraumatic. ENT: Nares patent. No nasal discharge, no septal abnormalities noted. Tympanic membranes are normal and external auditory canals are clear. Oropharynx with no redness, swelling, or masses, exudates, or evidence of obstruction, uvula midline. Mucous membranes moist. Neck: Trachea midline, no thyromegaly or masses palpated, and no cervical lymphadenopathy. Supple, full range of motion without nuchal rigidity, or vertebral point tenderness. No Meningismus. Chest/axilla: Normal chest wall appearance and motion. Nontender with no deformity. No lesions are appreciated. Cardiovascular: Regular rate and rhythm with a normal S1 and S2. No gallops, murmurs, or rubs. Normal PMI, no JVD. No pulse deficits. Respiratory: Lungs have equal breath sounds bilaterally, clear to auscultation and percussion. No rales, rhonchi or wheezes noted. No increased work of breathing, no retractions or nasal flaring. Abdomen/GI: Soft, non-tender, with normal bowel sounds. No distension or tympany. No guarding or rebound. No evidence of tenderness throughout. Back: No spinal tenderness. No costovertebral tenderness. Full range of motion. Female : Normal external genitalia. Skin: Warm, dry with normal turgor. Normal color with no rashes, no lesions, and no evidence of cellulitis. MS/ Extremity: Pulses equal, no cyanosis. Neurovascular intact. Full, normal range of motion., bilateral aka Neuro: Awake and alert, GCS 15, oriented to person, place, time, and situation. Cranial nerves II-XII grossly intact. Motor strength 5/5 in all extremities. Sensory grossly intact. Cerebellar exam normal. Normal gait. Psych: Awake, alert, with orientation to person, place and time. Behavior, mood, and affect are within normal limits. 16:50 Eyes: Periorbital structures: appear normal, Pupils: no acute changes, equal, round, and reactive to light and accomodation, Extraocular movements: intact throughout, Conjunctiva: normal, no acute changes, Corneas: are normal, no acute changes, Sclera: no appreciated abnormality, no acute changes, Anterior chamber: normal, Lids and lashes: no acute changes, funduscopic exam reveals no obvious abnormalities, Nystagmus: nystagmus with fast component noted, bilaterally, 17:08 ECG was reviewed by the Attending Physician. [facility] Vital Signs: 15:56 BP 157 / 94; Pulse 71; Resp 17; Temp 98.5; Pulse Ox 100% ; Weight 113.4 kg; Height 5 ll1 ft. 4 in. ; Pain 0/10; 18:19 BP 122 / 61 Supine; Pulse 71; ll1 19:00 BP 135 / 67; Pulse 69; Resp 16; Pulse Ox 96% ; al5 19:30 BP 138 / 63; Pulse 69; Resp 17; Pulse Ox 95% on R/A; al5 15:56 Body Mass Index 42.91 (113.40 kg, 162.56 cm) ll1 15:56 Pain Scale: Adult ll1 MDM: 15:23 Medical Screening Exam initiated [facility] 16:51 Differential diagnosis: cardiac arrhythmia, CVA, generalized weakness, GI bleed, royce hypovolemia, idiopathic dizziness, near-syncope, TIA, vertigo. Data reviewed: vital signs, nurses notes, lab test result(s), EKG, radiologic studies, CT scan, plain films. Consideration of Admission/Observation Patient was admitted/placed on observation. Escalation of care including admission/observation considered. I considered the following discharge prescriptions or medication management in the emergency department Medications were administered in the Emergency Department. See MAR. Independent interpretation of the following test(s) in the Emergency Department EKG: See my EKG interpretation above. Test considered but Not performed: MRI: NO MRI BRAIN. Historians other than the Patient: Spouse/Significant Other: SPOUSE WELL INFORMED. Care significantly affected by the following chronic conditions: Obesity, GERD, VERTIGO. Counseling: I had a detailed discussion with the patient and/or guardian regarding the historical points, exam findings, and any diagnostic results supporting the discharge/admit diagnosis, the presence of at least one elevated blood pressure reading (>120/80) during this emergency department visit, lab results, radiology results, the need for outpatient follow up, for definitive care, a family practitioner, a neurologist. 06/27 15:28 Order name: Basic Metabolic Panel; Complete Time: 18:12 [facility] 06/27 15:28 Order name: CBC with Diff; Complete Time: 18:12 06/27 15:28 Order name: LFT's; Complete Time: 18:12 06/27 15:28 Order name: Magnesium; Complete Time: 18:12 06/27 15:28 Order name: NT PRO-BNP; Complete Time: 18:12 06/27 15:28 Order name: PT-INR; Complete Time: 18:04 06/27 15:28 Order name: Troponin HS; Complete Time: 18:12 06/27 15:28 Order name: Urinalysis w/ reflexes 06/27 15:28 Order name: XRAY Chest (1 view); Complete Time: 17:34 06/27 15:28 Order name: US Carotid Artery Bilateral; Complete Time: 17:34 06/27 16:54 Order name: CT Head Brain wo Cont; Complete Time: 18:04 06/27 15:28 Order name: Cardiac monitoring; Complete Time: 17:06 06/27 15:28 Order name: EKG - Nurse/Tech; Complete Time: 17:06 06/27 15:28 Order name: IV Saline Lock; Complete Time: 17:34 06/27 15:28 Order name: Labs collected and sent; Complete Time: 17:34 06/27 15:28 Order name: O2 Per Protocol; Complete Time: 17:06 06/27 15:28 Order name: O2 Sat Monitoring; Complete Time: 17:06 [facility] EC:08 Rate is 73 beats/min. Rhythm is regular. QRS [place] is Normal. VT interval is normal. QRS royce interval is normal. QT interval is normal. No Q waves. T waves are Normal. No ST changes noted. Clinical impression: NSR w/ Non-specific ST/T Changes and No evidence of ischemia. Interpreted by me. Reviewed by me. Administered Medications: 17:01 Not Given (Patient Refused): [id number] mg PO once ll1 18:16 Drug: NS 0.9% IV 1000 ml IV at 1000 ml once; to be given as a bolus over 60 minutes ll1 Route: IV; Rate: 1000 ml; Site: right antecubital; 19:26 Follow up: Response: No adverse reaction; IV Status: Completed infusion; IV Intake: al5 1000ml 18:16 Drug: foLIC Acid IVPB 1 mg IVPB once Route: IVPB; Site: right antecubital; ll1 19:05 Follow up: Response: No adverse reaction; IV Status: Completed infusion; IV Intake: ll1 1000ml 18:26 Drug: Aspirin PO Chewable Tablet 81 mg PO once Route: PO; ll1 19:05 Follow up: Response: No adverse reaction ll1 18:26 Drug: Meclizine PO 50 mg PO once Route: PO; ll1 19:05 Follow up: Response: No adverse reaction ll1 Disposition Summary: 06/27/24 18:13 Discharge Ordered Notes: Location: Home royce Problem: new royce Symptoms: have improved royce Condition: Stable royce Diagnosis - Dizziness and giddiness royce - Benign paroxysmal vertigo, bilateral royce Followup: royce - With: Private Physician - When: 2 - 3 days - Reason: Recheck today's complaints, Continuance of care, Re-evaluation by your physician Followup: royce - With: Mike Díaz MD - When: 2 - 3 days - Reason: Recheck today's complaints, Re-evaluation by your physician Discharge Instructions: - Discharge Summary Sheet royce - Benign Positional Vertigo royce - Dizziness royce - Motion Sickness royce - Vertigo royce - Vertigo, Dipt-fy-Amwl royce - Aspirin and Your Heart royce - Dizziness, Mpbt-hd-Flmh royce Forms: - Medication Reconciliation Form royce - Antibiotic Education royce - Prescription Opioid Use royce - Patient Portal Instructions [facility] - Leadership Thank You Letter [facility] Prescriptions: - ondansetron 4 mg Oral Tablet,disintegrating - take 1 tablet ORAL route every 6-8 hours PRN NAUSEA; 20 tablet; Refills: 0, [facility] Product Selection Permitted - Meclizine 25 mg Oral tablet - take 1 tablet ORAL route every 6 hours As needed; 30 tablet; Refills: 0, [facility] Product Selection Permitted - Folic Acid 1 mg Oral Tablet - take 1 tablet ORAL route once daily; 30 tablet; Refills: 0, Product Selection [facility] Permitted Signatures: Dispatcher [employer] Glynn Ellis MD MD cha Lewis, Lynsay, RN RN ll1 Luz Last RN al5 Corrections: (The following items were deleted from the chart) 15:29 15:29 BASIC METABOLIC PANEL+C.LAB.BRZ ordered. EDMS EDMS 15:29 15:29 CBC+H.LAB.BRZ ordered. EDMS EDMS 15: 15:29 HEPATIC FUNCTION+C.LAB.BRZ ordered. EDMS EDMS 15: 15:29 MAGNESIUM+C.LAB.BRZ ordered. EDMS EDMS 15: 15:29 PROBNP+C.LAB.BRZ ordered. EDMS EDMS 15: 15:29 PROTIME (+INR)+COAG.LAB.BRZ ordered. EDMS EDMS 15: 15:29 Troponin High Sensitivity+C.LAB.BRZ ordered. EDMS EDMS 15: 15:29 Urinalysis+U.LAB.BRZ ordered. EDMS EDMS 15: 15:29 Chest Single View+RAD.RAD.BRZ ordered. EDMS EDMS 15: 15:29 Carotid Artery Bilateral+US.RAD.BRZ ordered. EDMS EDMS 18:26 16:54 Orthostatics ordered. royce ll1
[2024-06-27] MEDS ORDERED: ASPIRIN 81 MG CHEWABLE TABLET ONE (18:22)
[2024-06-27 19:11] LABS: Specific Gravity < 1.005 (1.005-1.030); Sqamous Epithelial None Seen /HPF (None Seen); Urine Bacteria None Seen /HPF (<20); Urine Bilirubin NEGATIVE (Negative); Urine Blood Trace (Negative); Urine Clarity Clear (Clear); Urine Color Colorless (Yellow); Urine Crystals Unidentified Few /HPF (None Seen); Urine Culture Reflex Order NOT NEEDED; Urine Glucose NEGATIVE (Negative); Urine Ketones NEGATIVE (Negative); Urine Microscopic Reflex YN ORDER UMIC; Urine Nitrite NEGATIVE (Negative); Urine Protein NEGATIVE (Negative); Urine RBC <5 /HPF (None Seen); Urine Urobilinogen Normal (Normal); Urine WBC <5 /HPF (<5); Urine pH 6.5 (5.0-7.0)
[2024-06-27 21:32] VITALS: TEMP 98.5
[2024-06-27 21:37] VITALS: BP 138/63; O2SAT 95
--- NOTE | 2024-07-01 12:21 | EKG ---
Test Date: 2024-06-27 Test Time: 16:58:45 Production Line Technician: AM MEASUREMENT RESULTS: Intervals: Rate: 73 MO: 190 QRSD: 76 QT: 390 QTc: 429 [place]: P: 55 MO: 190 QRS: 58 T: 16 INTERPRETIVE STATEMENTS: Normal sinus rhythm Normal ECG No previous ECG available for comparison Electronically Signed On 07-01-24 12:11:27 CDT by Keyshawn Negron
== END 2024-06-27 21:03 | disposition home or self-care (01) ==
LOC: ER 15:16
DX: H81.13 Benign paroxysmal vertigo, bilateral (principal)
CPT/HCPCS: 96365; 93005; 85025; 81001; 80048; 36415; 83735; 85610; 80076; 84484; 83880; 70450; 71045; 93880; 99284; J8597; J7030